=== PATIENT | male | born 1980 | race Caucasian/White ===

== ENCOUNTER 2020-12-08 20:02 | Inpatient (IN) | payer OTHER, SELFPAY ==
[2020-12-08] VITALS (18 sets, daily range): BP systolic 54–139; BP diastolic 31–85; PULSE 87–116; RESP 12–24; TEMP 36.9; O2SAT 88–96; BMI 37.9; BMI 37.2
--- NOTE | 2020-12-08 20:22 | EKG12_ITS ---
Test Reason : SOB Blood Pressure : / mmHG Vent. Rate : 106 BPM Atrial Rate : 106 BPM P-R Int : 142 ms QRS Dur : 120 ms QT Int : 372 ms P-R-T Axes : 029 -16 -06 degrees QTc Int : 494 ms Sinus tachycardia Poor R wave progression Confirmed by ANASTASIIA ROSS, OPAL ([id number]), editor index MANDEEP HERNANDEZ ([id number]) on 12/10/2020 1:24:08 PM Referred By: UG/PL Confirmed By:OPAL LAURENT MD
--- NOTE | 2020-12-08 20:24 | ED.VIS.DYS ---
HPI History of Present Illness Chief Complaint: Shortness of Breath Detail of Chief Complaint: Covid symptoms with increased shortness of breath Informant: patient and spouse/S.O. Onset/Context/Timing Onset: Days (Onset of symptoms November 25) Context: gradual Timing: Continuous and Waxes and wanes Quality: Positive for Dyspnea on exertion; Negative for Orthopnea and PND Current Severity: Moderate Maximum Severity: Severe Worsened by: Exertion and Coughing Relieved by: Nothing Associated Symptoms cough and clear sputum Chest Pain: Positive for None Narrative Narrative: Patient states he had a home positive Covid test. Onset of symptoms November 25. He presents because of increased shortness of breath and difficulty breathing. He has had temperature varying between 100.0-104.0 ?F. He presently denies headache. He states that his rhinorrhea, congestion postnasal drainage sore throat have resolved. His loss of taste and smell has resolved. He does report shortness of breath. Does have a cough productive of clear sputum. He is a non-smoker. He does report nausea without vomiting. Diarrhea resolved. He denies rash. He denies leg pain, swelling or discoloration. There is no history of VTE. He has no history of diabetes, renal disease or peptic ulcer disease. He is unvaccinated. PE Risk Factors: Negative for Cancer, OCP + Smoking + > 35, Prior DVT or PE, Recent immobilization, Recent surgery and Recent travel Prior similar symptoms: Yes Recent Illness/Hospitalization: No [facility] Medical History Gout Home Medications allopurinol 100 mg PO DAILY 12/08/20 [History Last Taken Unknown] Allergy/AdvReac Type Severity Reaction Status Date / Time Penicillins [PCN] Allergy Rash Verified 12/08/20 20:06 Social History (Updated 12/08/20 @ 20:[address] Jimmie Taylor MD) household members: spouse and children Smoking Status: Never smoker alcohol intake: current alcohol intake frequency: other substance use type: does not use ROS ROS ED Constitutional Constitutional ED: Denies chills, fever(s) or sweats Eyes Eyes: Denies blurry vision, change in vision or diplopia ENT ENT ED: Denies ear pain, rhinorrhea or sore throat Cardiovascular Cardiovascular: Denies chest pain, orthopnea, palpitations or paroxysmal nocturnal dyspnea Respiratory/Chest Respiratory/Chest: Reports cough, dyspnea, dyspnea on exertion and sputum; Denies orthopnea or paroxysmal nocturnal dyspnea Gastrointestinal Gastrointestinal: Denies abdominal pain, diarrhea, nausea or vomiting Genitourinary Genitourinary ED: Denies dysuria, hematuria or urinary frequency Musculoskeletal Musculoskeletal: Denies arthralgias, myalgias or neck pain Integumentary Denies Abrasions or rash Neurologic Neurologic: Reports headache(s) and weakness; Denies paresthesias Endocrine Endocrinology: Denies polydipsia, polyphagia or polyuria Hematologic/Lymphatic Hematologic/Lymphatic: Denies easy bleeding or easy bruising EXAM Physical Exam Const Vital Signs: 12/08/20 20:03 12/08/20 20:07 12/08/20 20:19 Temperature 98.5 F 98.5 F 98.5 F Temperature Source Temporal Temporal Temporal Pulse Rate 116 H 116 H 109 H Respiratory Rate 24 H 24 H 20 H Respiratory Effort Respiratory Depth Respiratory Pattern Blood Pressure 133/85 H 133/85 H 131/78 H Blood Pressure Mean 101 101 95 Pulse Ox 88 88 88 Oxygen Delivery Method Room Air Room Air Room Air 12/08/20 20:20 12/08/20 21:00 12/08/20 21:01 Temperature Temperature Source Pulse Rate 92 90 Respiratory Rate Respiratory Effort Short of Breath Respiratory Depth Shallow Respiratory Pattern Tachypnea Blood Pressure 77/47 L 75/46 L Blood Pressure Mean 57 55 Pulse Ox Oxygen Delivery Method 12/08/20 21:03 12/08/20 21:07 12/08/20 21:10 Temperature Temperature Source Pulse Rate 101 H 104 H 87 Respiratory Rate Respiratory Effort Respiratory Depth Respiratory Pattern Blood Pressure 54/31 L 97/76 109/81 H Blood Pressure Mean 38 83 90 Pulse Ox Oxygen Delivery Method Positive well nourished and well developed General Appearance ED: well developed and other Patient is tachypneic and appears ill. He is diaphoretic. He is not pale. ; Negative for NAD or pallor HEENT Reports TM's clear and dry mucous membranes HEENT Narrative: Nares patent. Ears normal. Tympanic Membrane ED: Yes TM's clear Mouth ED: Yes dry mucous membranes Mouth: dry mucous membranes Eyes PERRL and EOMs intact bilaterally General Eye ED: Negative for pale conjunctiva or scleral icterus Neck no lymphadenopathy, supple, no meningeal signs and no JVD Resp No normal respiratory effort and No clear to auscultation bilaterally Auscultation: rales bilateral 1/[address] up and diminished lung sounds Cardio regular rate, S1 normal heart sound, S2 normal heart sound and no murmurs Rate: tachycardic GI non-tender, non-distended and no masses Auscultation: normoactive bowel sounds Palpation: soft Back/Spine no CVA tenderness and normal to inspection Extremity normal to inspection General Extremety ED: Negative for edema or tenderness General Extremity: Negative for edema Neuro oriented x3, CN's II-XII intact bilaterally and no sensory deficits noted Esteban Coma Scale: document GCS findings Spontaneous Obeys Commands Oriented 15 Sensorium / Orientation: alert Motor Exam: strength 5/5 throughout Psych mental status grossly normal Thought Process: normal thought process Skin no wounds General Skin Exam: Negative for jaundice or pallor Lesions: no lesions Rashes: no rashes Trauma: other He is diaphoretic. MDM MDM MDM Narrative Medical decision making narrative: Patient history and physical exam is consistent with Covid pneumonia. Appropriate work-up was initiated. He is hypoxic with a O2 sat of 80% on room air. He received Decadron since he is hypoxic. I was informed by nursing staff at 04/09/2004 that he is hypotensive. He had 2 readings with systolic in the 70s. His third reading was 54. Nurse states she checked manually and time both extremities. Fluid bolus was given. He is only given 8000 cc bolus because there is concern he has Covid pneumonia. Will order a VBG. Will monitor I's and O's. Lab Data Attestation: I reviewed the patient's lab results. Lab results narrative: White count and H&H are unremarkable. Comprehensive metabolic panel is remarkable for sodium of 132 and glucose of 128. Creatinine is 1.31 with an estimated GFR of 64. Transaminases are elevated. The rapid Covid was negative and may be negative since his symptoms started 14 days ago. Based on history physical exam and appearance of chest x-ray suspect he has Covid pneumonia. Since the rapid was negative will treat with antibiotics. The Covid PCR was obtained. He arrived hypoxic. He has had a significant hypotensive episode that was responsive to fluids. Because he is hypoxic and was hypotensive we will have hospitalist see for admission. Labs: Laboratory Results - last 24 hr 10/02/21 10/02/21 10/02/21 20:52 20:52 20:52 WBC 6.0 RBC 5.18 Hgb 15.8 Hct 45.4 MCV 87.6 MCH 30.5 MCHC 34.8 RDW Std Deviation 40.0 RDW Coeff of Antonina 12.5 Plt Count 308 MPV 10.3 Immature Gran % (Auto) 0.300 Neut % (Auto) 71.1 H Lymph % (Auto) 21.2 [place] % (Auto) 7.0 Eos % (Auto) 0.2 Baso % (Auto) 0.2 Absolute Neuts (auto) 4.3 Absolute Lymphs (auto) 1.28 Nucleated RBC % 0 Sodium 132 L Potassium 4.0 Chloride 98 Carbon Dioxide 25.0 Anion Gap 9 BUN 19 H Creatinine 1.31 H Estim Creat Clear Calc 87.15 Est GFR (MDRD) Af Amer 78 Est GFR (MDRD) Non-Af 64 BUN/Creatinine Ratio 14.5 Glucose 128 H Lactic Acid 1.2 Calcium 9.3 Total Bilirubin 0.60 AST 194 H ALT 377 H Alkaline Phosphatase 84 Total Protein 7.6 Albumin 2.9 L Globulin 4.7 H Albumin/Globulin Ratio 0.6 L ABG Data ABG results: ABG 12/08/20 21:42 Specimen Type YAMEL VBG pH 7.45 H VBG pO2 53 H VBG HCO3 23 VBG Total CO2 24 VBG O2 Sat (Calc) 89 H VBG Base Excess -1 POC Mix VBG pCO2 Pt Tmp 33.7 L O2 Delivery Device Cannula Liter Flow 2.0 Radiography Chest X-Ray - ED: 1 View (X-ray was interpreted by me at 2145. X-ray reveals bilateral interstitial infiltrate left greater than right) Diagnostic Testing: Radiology Impression Chest X-Ray 12/08/20 21:34 IMPRESSION: Multifocal pneumonia. Electronically Signed: Oliver Stewart MD at 22:10 EDT Tel , Service support , EKG Initial EKG: Attestation: I personally reviewed and interpreted this EKG as follows: Interpretation: Sinus Tachycardia (Ventricular rate is 106. PA intervals 142 ms. QS duration 120 ms. QT durations 172 ms. [place] is normal. EKG is normal except for the sinus tachycardia) Critical Care Time Critical Care Time: Yes Critical care time (excluding procedures): 30-74 minutes (32), Including time spent: (History, physical, documentation, initiation of therapy), Discussing w/Patient &/or Family/Director Of Student Life ( reports onset was November 27.), Discussing w/Consultants and Arranging Admission or Transfer Discharge Plan Triage Chief Complaint: Shortness of Breath ED Provider: Jimmie Taylor Dx/Rx/DC Orders Clinical Impression: Acute respiratory failure with hypoxia, Bilateral interstitial pneumonia, Acute hypotension, Hyponatremia, Hyperglycemia, Elevated liver transaminase level Prescriptions: No Action allopurinol 100 mg Tablet 100 mg PO DAILY RF: 0 Primary Care Provider: Monica Ferreira Referrals: Monica Ferreira MD [Primary Care Provider] - Disposition Disposition: Acute Care Hospital [facility]
[2020-12-08 21:16] LABS: Absolute Lymphocyte Count 1.28 X10^3/uL (0.83-4.51); Absolute Neutrophil Count 4.3 X10^3/uL (2.0-7.7); Basophil# 0.01 X10^3/uL; Basophil% 0.2 % (0-1); Eosinophil# 0.01 X10^3/uL; Eosinophils% 0.2 % (0-5); Hematocrit 45.4 % (40-54); Hemoglobin 15.8 g/dL (13.0-16.5); Lymphocyte # 1.28 X10^3/ul (0.83-4.51); Lymphocyte % 21.2 % (19-41); Mean Corp Hgb Conc 34.8 g/dL (32-36); Mean Corpuscular Hgb 30.5 pg (27.0-32.0); Mean Corpuscular Volume 87.6 fL (80-94); Mean Platelet Vol. 10.3 fl (6.2-12.0); Monocyte# 0.42 X10^3/uL; NRBC Flagged by Analyzer 0 % (0-5); Neutrophil # 4.29 X10^3/uL (2.7-7.7); Neutrophil % 71.1 % (47-70); Platelet Count 308 K/mm3 (150-450); RBC Distribution Width CV 12.5 % (11.6-14.6); Red Blood Count 5.18 M/mm3 (4.6-6.2)
[2020-12-08] MEDS: 0.9% Normal Saline 1,000 ML 1000 ML IV (21:23)
--- NOTE | 2020-12-08 21:27 | ED.RN ---
2100 - THIS NURSE IN THE ROOM LABELING BLOOD, WHEN CONFIRMING THE PT NAME, PT VERY PALE AND DIAPHORETIC. PT STATES I DON'T FEEL VERY GOOD BP 77/47 ON RIGHT ARM. BP RECYCLED 75/46. BP CUFF SWITCHED TO LEFT ARM BP 54/31. HEAD OF BED LOWERED. THIS NURSE INFORMED DR RICHARD OF THE SAME. IV BOLUS HUNG. SECOND IV STARTED. PT STATES I'M FEELING A LITTLE BETTER. PT CONTINUES TO LAY SUPINE. STILL PALE AND DIAPHORETIC. BP 97/76 AT 2106. BP 109/81 AT 2109
[2020-12-08 21:32] LABS: ALB/GLOB Ratio 0.6 RATIO (0.9-2.4); AST(SGOT) 194 U/L (15-37); Alanine Aminotransfer ALT/SGPT 377 U/L (16-61); Albumin, Serum 2.9 g/dL (3.2-5.0); Alkaline Phosphatase 84 U/L (45-117); Anion Gap 9 (5-15); BUN 19 mg/dL (7-18); BUN/Creat Ratio 14.5 RATIO (10-20); Calcium,Total 9.3 mg/dL (8.5-10.1); Chloride 98 mmol/L (98-107); Creatinine, Serum 1.31 mg/dL (0.70-1.30); EST Glomerular Filtration Rate 64 mL/min (>60); Est Glom Filt Rate - Afr Amer 78 mL/min (>60); Estimated Creatinine Clearance 87.15 ml/min; Globulin 4.7 g/dL (2.2-4.2); Glucose 128 mg/dL (74-106); Protein, Total 7.6 g/dL (6.4-8.2); Sodium Level 132 mmol/L (136-145)
--- NOTE | 2020-12-08 21:34 | RAD_ITS ---
STUDY: X-RAY CHEST REASON FOR EXAM: Male, 40 years old. Cough TECHNIQUE: Portable, supine, AP chest radiograph COMPARISON: None. FINDINGS: Diffuse infiltrative opacities throughout both lungs. There is no demonstrated pleural abnormality. Normal size heart. Normal mediastinum and ailyn. Normal visualized pulmonary arteries. Normal visualized aortic arch and descending thoracic aorta. Normal visualized thoracic spine. Normal visualized ribs, clavicles, and shoulders. There is no demonstrated abnormality of the visualized soft tissue structures of the upper abdomen. RAD/Chest 1 View (Portable) IMPRESSION: Multifocal pneumonia. Electronically Signed: Oliver Stewart MD at 22:10 EDT Tel , Service support ,
[2020-12-08] MEDS: dexAMETHasone 10 MG/ML Vial IV (21:39)
[2020-12-08 21:45] LABS: Lactic Acid 1.2 mmol/L (0.4-1.9)
[2020-12-08 21:46] LABS: Blood Gas Specimen Type VEN; O2 Delivery Device Cannula; VBG BASE EXCESS -1 mmol/L (-1.0-3.5); VBG Bicarbonate 23 mmol/L (22-26); VBG PO2 53 mmHg (25-40); VBG SO2 89 % (50-70); VBG TCO2 24 mmol/L (23-33); VBG pCO2 33.7 mmHg (41-51); VBG pH 7.45 (7.32-7.42)
--- NOTE | 2020-12-08 22:34 | HP.PCM.HOS_ITS ---
HPI - General General Date of Admission: 12/08/20 Date of Service: 12/08/20 Chief Complaint: Covid-like symptoms HPI Narrative PER LAU, is a 40 M with a significant history of gout who presents to the emergency department with Covid-like symptoms. His symptoms started on 27 November 2020. And he did the home Covid test on that returned positive. He had dysgeusia and anosmia which has improved. He has fever; chills; fatigue; weakness; and some shortness of breath that worsens with exertion. He has myalgia; poor appetite; predominantly dry cough that occasionally is productive for clear sputum. Because he was hypoxic with oxygen saturation of around 85% at home he came to emergency department. Patient is unvaccinated for COVID-19 virus. At the emergent department patient was hypotensive and received fluid boluses. [facility] Medical History Gout Home Medications allopurinol 100 mg PO DAILY 12/08/20 [History Last Taken Unknown] Allergy/AdvReac Type Severity Reaction Status Date / Time Penicillins [PCN] Allergy Rash Verified 12/08/20 20:06 Family History Other Diabetes Hypertension Surgical History History of surgery on arm Social History household members: spouse and children Smoking Status: Never smoker alcohol intake: current alcohol intake frequency: other substance use type: does not use ROS ROS Narrative Constitutional: Reports fever, chills, fatigue, and anorexia. Denies change in weight Eyes: Denies blurry vision, change in eye color, change in vision, discharge from eye(s), double vision, erythema, eye pain, loss of vision or other HEENT: Denies abnormal hearing, dysphagia, ear pain, epistaxis, headache(s), hearing loss, nasal congestion, nasal discharge, post nasal drip, sinus pressure, sore throat or other Cardiovascular: Denies chest pain or palpitations. Reports dyspnea on exertion. Respiratory/Chest: Reports predominantly dry cough and occasionally productive cough of clear sputum. Gastrointestinal: Denies abdominal pain, coffee ground emesis, constipation, diarrhea, dyspepsia, hematemesis, hematochezia, loose stools, melena, nausea, vomiting or other Genitourinary: Denies burning urination, difficulty urinating, dysuria, hematuri a, nocturia, urinary frequency, urinary hesitancy, urinary incontinence, urinary urgency or other Musculoskeletal: Reports myalgia. Denies arthralgias, back pain, joint pain, joint stiffness, joint swelling, neck pain or other Neurologic: Denies abnormal gait, abnormal speech, confusion, disequilibrium, dizziness, focal weakness, headache(s), numbness, paresthesias, seizure-like activity, seizures, syncope, tingling, tremor(s) or other Psychiatric: Denies anxiety, depression, homicidal ideation, suicidal ideation or other Endocrinology: Denies change in body appearance, cold intolerance, excessive sweating, heat intolerance, polydipsia, polyuria or other Hematologic/Lymphatic: Denies anemia, easy bleeding, easy bruising, lymphadenopathy or other Integumentary: Denies rashes Allergic/Immunologic: Denies rhinitis, hives, eczema, asthma or other Vital Signs Vital Signs Vital Signs: 12/08/20 20:03 12/08/20 20:07 12/08/20 20:19 Temperature 98.5 F 98.5 F 98.5 F Temperature Source Temporal Temporal Temporal Pulse Rate 116 H 116 H 109 H Respiratory Rate 24 H 24 H 20 H Respiratory Effort Respiratory Depth Respiratory Pattern Blood Pressure 133/85 H 133/85 H 131/78 H Blood Pressure Mean 101 101 95 Pulse Ox 88 88 88 Oxygen Delivery Method Room Air Room Air Room Air 12/08/20 20:20 12/08/20 21:00 12/08/20 21:01 Temperature Temperature Source Pulse Rate 92 90 Respiratory Rate Respiratory Effort Short of Breath Respiratory Depth Shallow Respiratory Pattern Tachypnea Blood Pressure 77/47 L 75/46 L Blood Pressure Mean 57 55 Pulse Ox Oxygen Delivery Method 12/08/20 21:03 12/08/20 21:07 12/08/20 21:10 Temperature Temperature Source Pulse Rate 101 H 104 H 87 Respiratory Rate Respiratory Effort Respiratory Depth Respiratory Pattern Blood Pressure 54/31 L 97/76 109/81 H Blood Pressure Mean 38 83 90 Pulse Ox Oxygen Delivery Method Weight Weight: 134.1 kg Body Mass Index (BMI) 37.9 Physical Exam Narrative Physical exam: General: Well-nourished, well-developed. Head: Normocephalic, atraumatic, no tenderness Eyes: PERRLA, EOMI ENT, no trauma, moist mucous membranes, no rhinorrhea Neck: Nontender, full range of motion, no spinal tenderness, deformities, step- off CVS: Regular rate and rhythm. S1-S2 present. No murmur, gallop or rub. Respiratory : Rales. Chest wall nontender, no wheezing Abdomen: Soft, nontender, nondistended, normal bowel sounds, no masses : Deferred Back: Nontender, no CVA tenderness, no midline spinal tenderness, deformities, step-offs Extremities: Nontender full range of motion, no trauma Skin: Normal color, no trauma, abrasions Neuro: Alert, oriented, cranial nerves II through XII grossly intact. Psychiatry: Normal mood. Normal affect. Not depressed. Not anxious. Results Lab / Micro Data Result Diagrams: 12/08/20 20:52 12/08/20 20:52 Labs: Laboratory Results - last 24 hr 12/08/20 20:52: WBC 6.0, RBC 5.18, Hgb 15.8, Hct 45.4, MCV 87.6, MCH 30.5, MCHC 34.8, RDW Std Deviation 40.0, RDW Coeff of Antonina 12.5, Plt Count 308, MPV 10.3, Immature Gran % (Auto) 0.300, Neut % (Auto) 71.1 H, Lymph % (Auto) 21.2, [place] % (Auto) 7.0, Eos % (Auto) 0.2, Baso % (Auto) 0.2, Absolute Neuts (auto) 4.3, Absolute Lymphs (auto) 1.28, Nucleated RBC % 0 12/08/20 20:52: Sodium 132 L, Potassium 4.0, Chloride 98, Carbon Dioxide 25.0, Anion Gap 9, BUN 19 H, Creatinine 1.31 H, Estim Creat Clear Calc 87.15, Est GFR (MDRD) Af Amer 78, Est GFR (MDRD) Non-Af 64, BUN/Creatinine Ratio 14.5, Glucose 128 H, Calcium 9.3, Total Bilirubin 0.60, AST 194 H, ALT 377 H, Alkaline Phosphatase 84, Total Protein 7.6, Albumin 2.9 L, Globulin 4.7 H, Albumin/Globulin Ratio 0.6 L 12/08/20 20:52: Lactic Acid 1.2 Micro: Microbiology 12/08/20 21:30 Nasal Secretion SARS-CoV-2 Antigen (Rapid) - Final ABG Data ABG results: ABG 12/08/20 21:42 Specimen Type YAMEL VBG pH 7.45 H VBG pO2 53 H VBG HCO3 23 VBG Total CO2 24 VBG O2 Sat (Calc) 89 H VBG Base Excess -1 POC Mix VBG pCO2 Pt Tmp 33.7 L O2 Delivery Device Cannula Liter Flow 2.0 Radiology Impression Chest X-Ray 12/08/20 21:34 IMPRESSION: Multifocal pneumonia. Electronically Signed: Oliver Stewart MD at 22:10 EDT Tel , Service support , Assessment & Plan Assessment/Plan (1) Acute respiratory failure with hypoxia: (2) COVID-19: (3) Hyponatremia: PLAN: Acute hypoxemic respiratory failure secondary to SARS- COV 2 Reports 85% on room air at home. At the emergency department oxygen saturation was 88% on room air and patient required supplemental oxygenation. Supplemental oxygenation continued. Initially hypotensive but responded to fluid bolus at the emergency department. Reports at home a positive Covid test. Rapid antigen at emergent department was negative. PCR test ordered at the emergency department, follow. Actual chest x-ray image was independently interpreted. I agree with radiologist interpretation of multifocal pneumonia. We will check D-dimer. Received ceftriaxone and azithromycin at the emergency department. Hold off further antibiotics at this time. Check procalcitonin. Check Legionella urine antigen. Check Streptococcus pneumoniae antigen. Outside window for remdesivir. Borderline elevated creatinine. Received IV fluid boluses at the emergency department. Trend BMP. Tylenol for fever Tessalon prn ordered Hyponatremia Sodium of 132, mild. Likely secondary to SIADH from pulmonary infection or hypovolemia requiring fluid bolus at the emergency department. Trend BMP. DVT prophylaxis Subcutaneous Lovenox ordered. Charges/Coding Visit Charges Inpatient E&M: 72678 Init Hosp L3
[2020-12-09] VITALS (9 sets, daily range): BP systolic 118–154; BP diastolic 61–90; PULSE 81–104; RESP 16–20; TEMP 36.2–37.4; O2SAT 92–96
[2020-12-09 00:01] LABS: Probe Check PASS; Specimen Processing Control PASS
[2020-12-09 00:05] LABS: D-Dimer Quantitative (DVT/PE) 1.34 FEU/ug/m (0.27-0.49)
[2020-12-09 00:44] LABS: Procalcitonin 0.26 ng/mL (0.00-0.09)
[2020-12-09] MEDS: guaiFENesin 1,200 MG Tablet 1200 MG PO ×3 (01:04→21:04)
[2020-12-09] MEDS: Acetaminophen 325 MG Tablet 650 MG PO (01:04)
--- NOTE | 2020-12-09 01:20 | CT_ITS ---
STUDY: CTA CHEST REASON FOR EXAM: Male, 40 years old. Elevated D-dimer, cough RADIATION DOSAGE (If Supplied By Facility): CTDIvol = ( 12.66 ) mGy, DLP = ( 519.67 ) mGycm TECHNIQUE: The examination was performed with the intravenous administration of IV 100mL Isovue-370. Post-processing of the angiographic images was performed, with multiplanar reformation and 3D reconstruction. Individualized dose optimization techniques were used for this CT. COMPARISON: None. FINDINGS: Normal enhancement of the main pulmonary artery and right and left pulmonary arteries. Normal enhancement of the bilateral peripheral pulmonary arteries. Respiratory motion artifact complicates evaluation of the segmental and subsegmental pulmonary arteries. No central pulmonary artery filling defect. Normal thoracic aorta and visualized great vessels. There is no demonstrated aortic dissection. Normal heart and pericardium. Normal mediastinum. Normal hilar regions. Normal visualized trachea and bronchi. The lungs are well expanded. Diffuse patchy groundglass densities in both lungs. Normal pleura. Normal chest wall structures. Normal osseous structures. No acute abnormal finding the visualized upper abdomen. CT/CTA Chest W/WO Contrast IMPRESSION: Bilateral multifocal pneumonia. Normal CTA chest examination, without a demonstrated pulmonary embolism or arterial dissection. Electronically Signed: Oliver Stewart MD at 2:23 EDT Tel , Service support ,
--- NOTE | 2020-12-09 04:51 | PCS.PANDOC ---
PANDEMIC DOCUMENTATION INITIATED: Date: 10/22/2020 Time: 190
[2020-12-09 06:01] LABS: Absolute Lymphocyte Count 0.72 X10^3/uL (0.83-4.51); Absolute Neutrophil Count 3.2 X10^3/uL (2.0-7.7); Basophil# 0.01 X10^3/uL; Basophil% 0.2 % (0-1); Hematocrit 46.2 % (40-54); Hemoglobin 15.7 g/dL (13.0-16.5); Lymphocyte # 0.72 X10^3/ul (0.83-4.51); Lymphocyte % 17.4 % (19-41); Mean Corpuscular Hgb 30.5 pg (27.0-32.0); Mean Corpuscular Volume 89.9 fL (80-94); Mean Platelet Vol. 10.8 fl (6.2-12.0); Monocyte# 0.13 X10^3/uL; Monocyte% 3.1 % (0-10); NRBC Flagged by Analyzer 0 % (0-5); Neutrophil # 3.24 X10^3/uL (2.7-7.7); Neutrophil % 78.6 % (47-70); Platelet Count 265 K/mm3 (150-450); RBC Distribution Width CV 12.6 % (11.6-14.6); RBC Distribution Width SD 41.8 fl (35.1-43.9); Red Blood Count 5.14 M/mm3 (4.6-6.2); White Blood Count 4.1 K/mm3 (4.4-11.0)
[2020-12-09 06:24] LABS: Anion Gap 6 (5-15); BUN 18 mg/dL (7-18); BUN/Creat Ratio 14.6 RATIO (10-20); Calcium,Total 9.3 mg/dL (8.5-10.1); Chloride 99 mmol/L (98-107); Creatinine, Serum 1.23 mg/dL (0.70-1.30); EST Glomerular Filtration Rate 69 mL/min (>60); Est Glom Filt Rate - Afr Amer 84 mL/min (>60); Estimated Creatinine Clearance 92.82 ml/min; Glucose 202 mg/dL (74-106); Potassium 5.5 mmol/L (3.5-5.1); Sodium Level 132 mmol/L (136-145)
--- NOTE | 2020-12-09 08:04 | PN.HOSP_ITS ---
Subjective Subjective Patient symptoms started on 27 November and home Covid test positive on 29 November. Has dyschezia, anosmia which improved. Other flulike symptoms includes fever, chills fatigue weakness shortness of breath on exertion. Dry cough. Patient is unvaccinated. Patient was hypotensive in ED and received fluid bolus. The most recent blood pressure is 154/90. Objective Data Objective Data Vital Signs: Vital Signs Temp Pulse Resp BP Pulse Ox 97.9 F 92 18 154/90 H 93 12/09/20 05:49 12/09/20 06:55 12/09/20 05:49 12/09/20 05:49 12/09/20 05:49 Oxygen Flow Rate (L/min) 2 Oxygen Delivery Method Nasal Cannula Weight: 290 lb 2.053 oz Body Mass Index (BMI) 37.2 Intake & Output: Intake and Output for Last 24 Hours 12/07/20 12/08/20 12/09/20 23:59 23:59 23:59 Intake Total 1050 / 1050 495 / 495 Output Total 450 / 450 Balance 1050 / 1050 45 / 45 Lab / Micro Data Result Diagrams: 12/09/20 05:04 12/09/20 05:04 Labs: Laboratory Results - last 24 hr 12/08/20 20:52: WBC 6.0, RBC 5.18, Hgb 15.8, Hct 45.4, MCV 87.6, MCH 30.5, MCHC 34.8, RDW Std Deviation 40.0, RDW Coeff of Antonina 12.5, Plt Count 308, MPV 10.3, Immature Gran % (Auto) 0.300, Neut % (Auto) 71.1 H, Lymph % (Auto) 21.2, [place] % (Auto) 7.0, Eos % (Auto) 0.2, Baso % (Auto) 0.2, Absolute Neuts (auto) 4.3, Absolute Lymphs (auto) 1.28, Nucleated RBC % 0 12/08/20 20:52: Sodium 132 L, Potassium 4.0, Chloride 98, Carbon Dioxide 25.0, Anion Gap 9, BUN 19 H, Creatinine 1.31 H, Estim Creat Clear Calc 87.15, Est GFR (MDRD) Af Amer 78, Est GFR (MDRD) Non-Af 64, BUN/Creatinine Ratio 14.5, Glucose 128 H, Calcium 9.3, Total Bilirubin 0.60, AST 194 H, ALT 377 H, Alkaline Phosphatase 84, Total Protein 7.6, Albumin 2.9 L, Globulin 4.7 H, Albumin/Globulin Ratio 0.6 L 12/08/20 20:52: Lactic Acid 1.2 12/08/20 20:52: Procalcitonin 0.26 H 12/08/20 22:37: COVID-19 (FRANSISCO) Positive 12/08/20 23:35: D-Dimer Quant (PE/DVT) 1.34 H* 12/09/20 05:04: WBC 4.1 L, RBC 5.14, Hgb 15.7, Hct 46.2, MCV 89.9, MCH 30.5, MCHC 34.0, RDW Std Deviation 41.8, RDW Coeff of Antonina 12.6, Plt Count 265, MPV 10.8, Immature Gran % (Auto) 0.700, Neut % (Auto) 78.6 H, Lymph % (Auto) 17.4 L, [place] % (Auto) 3.1, Eos % (Auto) 0.0, Baso % (Auto) 0.2, Absolute Neuts (auto) 3.2, Absolute Lymphs (auto) 0.72 L, Nucleated RBC % 0 12/09/20 05:04: Sodium 132 L, Potassium 5.5 H, Chloride 99, Carbon Dioxide 27.0, Anion Gap 6, BUN 18, Creatinine 1.23, Estim Creat Clear Calc 92.82, Est GFR (MDRD) Af Amer 84, Est GFR (MDRD) Non-Af 69, BUN/Creatinine Ratio 14.6, Glucose 202 H, Calcium 9.3 Micro: Microbiology 12/08/20 22:37 Mucosa - Nose Respiratory Panel (PCR) - Final 12/09/20 01:36 Urine, Random Legionella Antigen - Final 12/09/20 01:36 Urine, Random Streptococcus pneumoniae Antigen (M - Final 12/08/20 21:30 Nasal Secretion SARS-CoV-2 Antigen (Rapid) - Final ABG Data ABG results: ABG 12/08/20 21:42 Specimen Type YAMEL VBG pH 7.45 H VBG pO2 53 H VBG HCO3 23 VBG Total CO2 24 VBG O2 Sat (Calc) 89 H VBG Base Excess -1 POC Mix VBG pCO2 Pt Tmp 33.7 L O2 Delivery Device Cannula Liter Flow 2.0 Radiography Diagnostic Testing: Radiology Impression Chest X-Ray 12/08/20 21:34 IMPRESSION: Multifocal pneumonia. Electronically Signed: Oliver Stewart MD at 22:10 EDT Tel , Service support , Chest CTA 12/09/20 01:20 IMPRESSION: Bilateral multifocal pneumonia. Normal CTA chest examination, without a demonstrated pulmonary embolism or arterial dissection. Electronically Signed: Oliver Stewart MD at 2:23 EDT Tel , Service support , Physical Exam Narrative General: Alert, Oriented x3, Cooperative, laying on prone position. HEENT: Atraumatic, PERRLA, EOMI, Normocephalic Oral: No Gingival or Mucosal Lesions/ Ulcerations Neck: Supple, No JVD, Negative Carotid Bruits Lungs: Air entry diminished in bilateral lung bases. No crepitation/rhonchi Cardiovascular: Regular rate, Regular Rhythm, Normal S1, Normal S2, No murmurs Abdomen: Bowel Sounds Present, Soft, Non Tender, Non-Distended : No renal angle tenderness. No suprapubic tenderness. Extremities: No edema, Capillary Refill Less than 3 Seconds Skin: No rashes, No breakdown Musculoskeletal: No Tenderness to Palpation of Joints or Extremities Neurological: Cranial nerves II-XII grossly intact, DTR 2+/4 and Symmetrical, Neuro grossly intact Psych/Mental Status: Normal Affect, Appropriate. Assessment & Plan Assessment/Plan (1) Acute respiratory failure with hypoxia: (2) COVID-19: (3) Hyponatremia: PLAN: 1. Acute hypoxemic respiratory failure secondary to SARS- COV 2: Patient is admitted in PCU. On oxygen to maintain pulse ox more than 92%. Hypotension responded to IV fluid and currently blood pressure is slightly on higher side. Bronchopulmonary hygiene encouraged with prone positioning.Urinary antigens and is negative. Respiratory panel negative. Patient outside window for remdesivir. D-dimer elevated. Procalcitonin 0.26. Lactic acid normal. Does not need further antibiotic patient had 1 dose of cefazolin azithromycin in ED. 2. Hypotonic hypovolemic hyponatremia: Sodium 132, potassium 5.5. Not much difference. Possible SIADH from pulmonary infection. Mild hyperkalemia. Kayexalate given. DVT prophylaxis Subcutaneous Lovenox ordered. Microbiology Past 72 Hours 12/08/20 22:37 Mucosa - Nose Respiratory Panel (PCR) - Final 12/09/20 01:36 Urine, Random Legionella Antigen - Final 12/09/20 01:36 Urine, Random Streptococcus pneumoniae Antigen (M - Final 12/08/20 21:30 Nasal Secretion SARS-CoV-2 Antigen (Rapid) - Final Laboratory Results 12/08/20 20:52: WBC 6.0, RBC 5.18, Hgb 15.8, Hct 45.4, MCV 87.6, MCH 30.5, MCHC 34.8, RDW Std Deviation 40.0, RDW Coeff of Antonina 12.5, Plt Count 308, MPV 10.3, Immature Gran % (Auto) 0.300, Neut % (Auto) 71.1 H, Lymph % (Auto) 21.2, [place] % (Auto) 7.0, Eos % (Auto) 0.2, Baso % (Auto) 0.2, Absolute Neuts (auto) 4.3, Abso lute Lymphs (auto) 1.28, Nucleated RBC % 0 12/08/20 20:52: Sodium 132 L, Potassium 4.0, Chloride 98, Carbon Dioxide 25.0, Anion Gap 9, BUN 19 H, Creatinine 1.31 H, Estim Creat Clear Calc 87.15, Est GFR (MDRD) Af Amer 78, Est GFR (MDRD) Non-Af 64, BUN/Creatinine Ratio 14.5, Glucose 128 H, Calcium 9.3, Total Bilirubin 0.60, AST 194 H, ALT 377 H, Alkaline Phosphatase 84, Total Protein 7.6, Albumin 2.9 L, Globulin 4.7 H, Albumin/Globulin Ratio 0.6 L 12/08/20 20:52: Lactic Acid 1.2 12/08/20 20:52: Procalcitonin 0.26 H 12/08/20 21:42: Specimen Type YAMEL, VBG pH 7.45 H, VBG pO2 53 H, VBG HCO3 23, VBG Total CO2 24, VBG O2 Sat (Calc) 89 H, VBG Base Excess -1, POC Mix VBG pCO2 Pt Tmp 33.7 L, O2 Delivery Device Cannula, Liter Flow 2.0 12/08/20 22:37: COVID-19 (FRANSISCO) Positive 12/08/20 23:35: D-Dimer Quant (PE/DVT) 1.34 H* 12/09/20 05:04: WBC 4.1 L, RBC 5.14, Hgb 15.7, Hct 46.2, MCV 89.9, MCH 30.5, MCHC 34.0, RDW Std Deviation 41.8, RDW Coeff of Antonina 12.6, Plt Count 265, MPV 10.8, Immature Gran % (Auto) 0.700, Neut % (Auto) 78.6 H, Lymph % (Auto) 17.4 L, [place] % (Auto) 3.1, Eos % (Auto) 0.0, Baso % (Auto) 0.2, Absolute Neuts (auto) 3.2, Absolute Lymphs (auto) 0.72 L, Nucleated RBC % 0 12/09/20 05:04: Sodium 132 L, Potassium 5.5 H, Chloride 99, Carbon Dioxide 27.0, Anion Gap 6, BUN 18, Creatinine 1.23, Estim Creat Clear Calc 92.82, Est GFR (MDRD) Af Amer 84, Est GFR (MDRD) Non-Af 69, BUN/Creatinine Ratio 14.6, Glucose 202 H, Calcium 9.3 Charges/Coding Visit Charges Inpatient E&M: 03648 Subs Hosp L2
[2020-12-09] MEDS: dexAMETHasone 2 MG TABLET 6 MG PO (10:13)
[2020-12-09] MEDS: Enoxaparin 30 MG/0.3 ML Syringe SC ×2 (10:15→21:04)
[2020-12-09] MEDS: 0.9% Normal Saline 1,000 ML 100 ML IV (14:12)
[2020-12-09] MEDS: Sodium Polystyrene Sulfonate 15 GM/60 ML UDC 30 GM PO (14:12)
[2020-12-10] VITALS (13 sets, daily range): BP systolic 123–133; BP diastolic 65–82; PULSE 79–101; RESP 18–30; TEMP 35.8–36.1; O2SAT 87–95
[2020-12-10] MEDS: INHALER, ASSIST DEVICES 1 EACH SPACER INHALATION (00:22)
[2020-12-10] MEDS: dexAMETHasone 2 MG TABLET 6 MG PO (08:57)
[2020-12-10] MEDS: guaiFENesin 1,200 MG Tablet 1200 MG PO ×2 (08:57→21:18)
[2020-12-10] MEDS: Enoxaparin 30 MG/0.3 ML Syringe SC ×2 (08:58→21:18)
--- NOTE | 2020-12-10 09:55 | PCM.PN.HOSP ---
Subjective Subjective Patient is a 40-year-old gentleman unvaccinated against COVID-19 who presented with shortness of breath. Had apparently tested positive for Covid on 11/29/2020. Objective Data Objective Data Vital Signs: Vital Signs Temp Pulse Resp BP Pulse Ox 97.0 F L 80 18 133/82 H 92 12/10/20 09:03 12/10/20 09:03 12/10/20 09:03 12/10/20 09:03 12/10/20 09:03 Oxygen Flow Rate (L/min) 5 Oxygen Delivery Method Nasal Cannula Weight: 132.2 kg Body Mass Index (BMI) 37.2 Intake & Output: Intake and Output for Last 24 Hours 12/08/20 12/09/20 12/10/20 23:59 23:59 23:59 Intake Total 1050 / 1050 1695 / 1935 1240 / 1240 Output Total 450 / 450 Balance 1050 / 1050 1245 / 1485 1240 / 1240 Lab / Micro Data Result Diagrams: 12/09/20 05:04 12/09/20 05:04 Micro: Microbiology 12/08/20 22:37 Mucosa - Nose Respiratory Panel (PCR) - Final 12/09/20 01:36 Urine, Random Legionella Antigen - Final 12/09/20 01:36 Urine, Random Streptococcus pneumoniae Antigen (M - Final 12/08/20 21:30 Nasal Secretion SARS-CoV-2 Antigen (Rapid) - Final Physical Exam Narrative GENERAL: cooperative but remains dyspneic at rest HEENT: Atraumatic; EYES; Anicteric, Normal Conjunctiva NECK; supple, normal thyroid, RESPIRATORY: Diminished to auscultation CARDIOVASCULAR: Regular S1 S2, GI: soft, normoactive bowel sounds, : No Renal angle tenderness; EXTREMITIES: No edema, no clubbing, MUSCULOSKELETAL: no muscle waisting NEURO: Awake; no lateralizing signs. SKIN: No Rash PSYCH; Flat affect Assessment & Plan Assessment/Plan (1) Acute respiratory failure with hypoxia: (2) COVID-19: (3) Hyponatremia: PLAN: Patient is a 40-year-old gentleman unvaccinated against COVID-19 who presented with shortness of breath. Had apparently tested positive for Covid on 11/29/2020. 1. Acute hypoxic respiratory failure ?Secondary to SARS-CoV-2 pneumonia. Patient was outside the window for remdesivir was however started on Decadron and supplemental oxygen and admitted to a monitored bed where he is currently being managed 2. Mild hyponatremia ?Secondary to suspected SIADH from his underlying pulmonary infection. Monitoring with daily BMPs 3. Hypokalemia ?Potassium was 5.5 the day prior repeat labs ordered and if still remains elevated treatment with additional Kayexalate to be given 4. Obesity with BMI of 37.4 ?Weight loss advised 5. DVT prophylaxis ?Lovenox Charges/Coding Multi Select Codes Visit Charges Visit Charges: 81082 Subs Hosp L3
[2020-12-10 13:32] LABS: Hematocrit 41.8 % (40-54); Hemoglobin 14.4 g/dL (13.0-16.5); Mean Corp Hgb Conc 34.4 g/dL (32-36); Mean Corpuscular Hgb 30.4 pg (27.0-32.0); Mean Corpuscular Volume 88.2 fL (80-94); Mean Platelet Vol. 10.1 fl (6.2-12.0); Platelet Count 428 K/mm3 (150-450); RBC Distribution Width CV 12.4 % (11.6-14.6); RBC Distribution Width SD 40.4 fl (35.1-43.9); Red Blood Count 4.74 M/mm3 (4.6-6.2); White Blood Count 12.2 K/mm3 (4.4-11.0)
[2020-12-10 14:07] LABS: Anion Gap 8 (5-15); BUN 24 mg/dL (7-18); BUN/Creat Ratio 23.3 RATIO (10-20); Calcium,Total 9.1 mg/dL (8.5-10.1); Chloride 100 mmol/L (98-107); Creatinine, Serum 1.03 mg/dL (0.70-1.30); EST Glomerular Filtration Rate 85 mL/min (>60); Est Glom Filt Rate - Afr Amer 103 mL/min (>60); Estimated Creatinine Clearance 110.84 ml/min; Glucose 241 mg/dL (74-106); Potassium 4.5 mmol/L (3.5-5.1); Sodium Level 133 mmol/L (136-145)
--- NOTE | 2020-12-10 14:13 | CASEMGMT ---
MELISSA RAMIREZ assessment: Face to Face with patient for initial transition planning/care coordination assessment. MELISSA RAMIREZ introduced self and role at [facility], pt voices understanding and consents to assessment. Pt is currently on 5L nc and able to speak in full sentences, no distress. Pt is A/Ox4 and answers all questions appropriately. Pt states was sick previously but is back to normal now and states no concerns with getting resources at home. Care providers, pharmacy, and demographics verified. Presentation: Pt states tested positive for COVID on 11/29, c/o SOB, low pulse ox Admitting dx: COVID PCP: Jhon Specialists: Pt states no current specialists. Preferred Pharmacy: [facility] [place] Insurance: [employer] Prescription Benefit: C[employer]a Living Will/HPOA: Pt states does not have LW/HPOA and declines AD info. LNOK: Cristo Saldana, Living Arrangements: Pt lives with in 2 story home and states no concerns at home. Pt is independent with ADL's. Transportation: Pt states drives self or family/friends drive and states no transportation concerns. DME/HHC: Pt states no current DME or no need for any further DME. Pt states no preference for DME provider, if qualifies for home oxygen at discharge. Pt states no hx of HHC or SNF. Pt states no concerns with going home at time of discharge. Pt works daytime caregiver. Pt states does not smoke cigarettes or drink ETOH. Pt states no further concerns/needs. CM to follow for home oxygen need and any further discharge planning/needs. Advised pt to ask for CM if any further questions/concerns/needs arise, voices understanding. Pt Goal: Home Plan[place] MELISSA RAMIREZ
[2020-12-11] VITALS (7 sets, daily range): BP systolic 131–133; BP diastolic 71–88; PULSE 60–87; RESP 16–18; TEMP 36.1–36.5; O2SAT 89–94
[2020-12-11 07:27] LABS: Absolute Lymphocyte Count 1.16 X10^3/uL (0.83-4.51); Absolute Neutrophil Count 8.2 X10^3/uL (2.0-7.7); Basophil# 0.01 X10^3/uL; Basophil% 0.1 % (0-1); Hematocrit 41.8 % (40-54); Hemoglobin 14.1 g/dL (13.0-16.5); Lymphocyte # 1.16 X10^3/ul (0.83-4.51); Lymphocyte % 11.3 % (19-41); Mean Corp Hgb Conc 33.7 g/dL (32-36); Mean Corpuscular Hgb 30.2 pg (27.0-32.0); Mean Corpuscular Volume 89.5 fL (80-94); Mean Platelet Vol. 10.1 fl (6.2-12.0); Monocyte# 0.75 X10^3/uL; Monocyte% 7.3 % (0-10); NRBC Flagged by Analyzer 0 % (0-5); Neutrophil # 8.24 X10^3/uL (2.7-7.7); Neutrophil % 80.3 % (47-70); Platelet Count 465 K/mm3 (150-450); RBC Distribution Width CV 12.5 % (11.6-14.6); RBC Distribution Width SD 41.3 fl (35.1-43.9); Red Blood Count 4.67 M/mm3 (4.6-6.2); White Blood Count 10.3 K/mm3 (4.4-11.0)
--- NOTE | 2020-12-11 07:30 | DS.PCM_ITS ---
Providers Date of Admission: 12/08/20 Primary Care Physician: Dr. Monica Ferreira MD Reason For Visit: SARS COV-2 Diagnosis Discharge Diagnosis (1) Acute respiratory failure with hypoxia: Status: Acute Code(s): J96.01 - Acute respiratory failure with hypoxia (2) COVID-19: Status: Acute Code(s): U07.1 - COVID-19 (3) Hyponatremia: Status: Acute Code(s): E87.1 - Hypo-osmolality and hyponatremia Medications at Discharge Home Medications allopurinol 100 mg PO DAILY 12/08/20 dexamethasone 6 mg PO DAILY 7 Days #21 tab 12/11/20 Hospital Course Summary of Care Provided Minutes Spent on Discharge: 35 Hospital Course: Patient is a 40-year-old gentleman unvaccinated against COVID- 19 who presented with shortness of breath. Had apparently tested positive for Covid on 11/29/2020. 1. Acute hypoxic respiratory failure ?Secondary to SARS-CoV-2 pneumonia. Patient was outside the window for remdesivir was however started on Decadron and supplemental oxygen and admitted to a monitored bed where he is currently being managed 2. Mild hyponatremia ?Secondary to suspected SIADH from his underlying pulmonary infection. Monitoring with daily BMPs 3. Hyperkalemia ?Potassium was 5.5 the day prior repeat labs ordered and if still remains elevated treatment with additional Kayexalate to be given -Resolved at the time of discharge 4. Obesity with BMI of 37.4 ?Weight loss advised 5. DVT prophylaxis ?Lovenox Physical Exam Narrative GENERAL: cooperative HEENT: Atraumatic; EYES; Anicteric, Normal Conjunctiva NECK; supple, normal thyroid, RESPIRATORY: Diminished to auscultation CARDIOVASCULAR: Regular S1 S2, GI: soft, normoactive bowel sounds, : No Renal angle tenderness; EXTREMITIES: No edema, no clubbing, MUSCULOSKELETAL: no muscle waisting NEURO: Awake; no lateralizing signs. SKIN: No Rash Weight / BMI Weight Weight: 132.4 kg Body Mass Index (BMI) 37.2 ABG / Lab / Microbiology Data Result Diagrams: 12/11/20 07:06 12/11/20 07:06 Laboratory: Laboratory Results - last 24 hr 12/10/20 13:20: WBC 12.2 H, RBC 4.74, Hgb 14.4, Hct 41.8, MCV 88.2, MCH 30.4, MCHC 34.4, RDW Std Deviation 40.4, RDW Coeff of Antonina 12.4, Plt Count 428, MPV 10.1 12/10/20 13:20: Sodium 133 L, Potassium 4.5, Chloride 100, Carbon Dioxide 25.0, Anion Gap 8, BUN 24 H, Creatinine 1.03, Estim Creat Clear Calc 110.84, Est GFR (MDRD) Af Amer 103, Est GFR (MDRD) Non-Af 85, BUN/Creatinine Ratio 23.3 H, Glucose 241 H, Calcium 9.1 12/11/20 07:06: WBC 10.3, RBC 4.67, Hgb 14.1, Hct 41.8, MCV 89.5, MCH 30.2, MCHC 33.7, RDW Std Deviation 41.3, RDW Coeff of Antonina 12.5, Plt Count 465 H, MPV 10.1, Immature Gran % (Auto) 1.000 H, Neut % (Auto) 80.3 H, Lymph % (Auto) 11.3 L, [place] % (Auto) 7.3, Eos % (Auto) 0.0, Baso % (Auto) 0.1, Absolute Neuts (auto) 8.2 H, Absolute Lymphs (auto) 1.16, Nucleated RBC % 0 Microbiology: Microbiology 12/08/20 22:37 Mucosa - Nose Respiratory Panel (PCR) - Final 12/09/20 01:36 Urine, Random Legionella Antigen - Final 12/09/20 01:36 Urine, Random Streptococcus pneumoniae Antigen (M - Final 12/08/20 21:30 Nasal Secretion SARS-CoV-2 Antigen (Rapid) - Final D/C Instructions Discharge Diet: No restrictions Discharge Activity: Return to Normal Activity Call your doctor if you observe: Fever of 101 or Higher, Shortness of breath, Fainting spells and Chest pain Meaningful Use Info Meaningful Use Diagnoses (Choose all that apply): None applicable Discharge Plan Admission Admit Date/Time: 12/08/20 22:27 Attending Provider: Errol Angel Primary Care Provider: Monica Ferreira Discharge Orders/Prescriptions Prescriptions: New dexamethasone 2 mg Tablet 6 mg PO DAILY 7 Days Qty: 21 RF: 0 Continued allopurinol 100 mg Tablet 100 mg PO DAILY RF: 0 Referrals / Follow Up: Monica Ferreira MD [Primary Care Provider] - Disposition Disposition (needs filled in before D/C Order can be placed): Home, Self Care Charges/Coding Visit Charges Inpatient E&M: 17619 Disch Hosp
[2020-12-11 08:22] LABS: ALB/GLOB Ratio 0.7 RATIO (0.9-2.4); AST(SGOT) 106 U/L (15-37); Alanine Aminotransfer ALT/SGPT 334 U/L (16-61); Albumin, Serum 2.8 g/dL (3.2-5.0); Alkaline Phosphatase 78 U/L (45-117); Anion Gap 6 (5-15); BUN 23 mg/dL (7-18); BUN/Creat Ratio 24.9 RATIO (10-20); Chloride 100 mmol/L (98-107); Creatinine, Serum 0.92 mg/dL (0.70-1.30); EST Glomerular Filtration Rate 96 mL/min (>60); Est Glom Filt Rate - Afr Amer 116 mL/min (>60); Estimated Creatinine Clearance 124.09 ml/min; Globulin 4.2 g/dL (2.2-4.2); Glucose 127 mg/dL (74-106); Potassium 4.6 mmol/L (3.5-5.1); Sodium Level 135 mmol/L (136-145)
[2020-12-11] MEDS: dexAMETHasone 2 MG TABLET 6 MG PO (08:39)
[2020-12-11] MEDS: guaiFENesin 1,200 MG Tablet 1200 MG PO (08:39)
[2020-12-11] MEDS: Enoxaparin 30 MG/0.3 ML Syringe SC (08:39)
--- NOTE | 2020-12-11 09:54 | CASEMGMT ---
Per Edward TORRES, pt does not qualify for home oxygen at this time. Pt independent in room and states no further concerns/need with going home at discharge. Andreas TORRES CM
--- NOTE | 2020-12-11 12:25 | PHA.DC.MC ---
Pharmacy Service has performed discharge medication reconciliation and counseling for this patient. Patient counseled via telephone due to COVID precautions. 1. DEXAMETHASONE 6MG PO DAILY X 7 DAYS The patient's discharge medication list was reviewed for discrepancies and discrepancies were resolved. Home Medications allopurinol 100 mg PO DAILY 12/08/20 dexamethasone 6 mg PO DAILY 7 Days #21 tab 12/11/20 The patient was counseled on the following discharge medications and changes in medications for homegoing were reviewed. The Reason for Use, instructions for use, and potential side effects were reviewed for all new medications. The patient's questions regarding all of their medications were answered. The patient was able to verbally demonstrate an understanding of their discharge medications.
--- NOTE | 2020-12-12 16:26 | CASEMGMT ---
RNASHLEY DC F/u Call DC Date: 12.11.20 DC Diagnosis: Acute respiratory failure with hypoxia, Covid DC Disposition: Home (Did not qualify for oxygen) Lace/Strata: 08/07 Called patient listed cell phone on demographics, no answer. VM stated Geoff- therefore no VM was left as this keno writer / runner could not verify correct patient identity. MELISSA AsifCM
== END 2020-12-11 13:34 | disposition home or self-care (01) | DRG 177 ==
LOC: ED 22:25 → PCU 22:42
PROVIDERS: Admitting Provider Hospitalist; Emergency Provider Emergency Medicine; PCP Family Medicine; Visit Provider Internal Medicine
DX: U07.1 COVID-19 (principal); J96.01 Acute respiratory failure with hypoxia; J12.82 Pneumonia due to coronavirus disease 2019; E22.2 Syndrome of inappropriate secretion of antidiuretic hormone; M10.9 Gout, unspecified; E87.5 Hyperkalemia; I95.9 Hypotension, unspecified; Z79.899 Other long term (current) drug therapy; Z28.3 Underimmunization status; E66.9 Obesity, unspecified; Z68.37 Body mass index [BMI] 37.0-37.9, adult
CPT/HCPCS: 36415; 71045; 71275; 80048; 80053; 82803; 83605; 84145; 85025; 85027; 85379; 87040; 87426; 87449; 87633; 87635; 93005; 99251; 99285; J7030; Q9967; U0005; A4216; G0463; J0696; U0003

== ENCOUNTER → 2020-12-22 09:01 | Outpatient (CLI) | payer OTHER, SELFPAY ==
[2020-12-22 11:37] LABS: Anion Gap 6 (5-15); BUN 24 mg/dL (7-18); BUN/Creat Ratio 23.1 RATIO (10-20); Calcium,Total 8.9 mg/dL (8.5-10.1); Chloride 110 mmol/L (98-107); Cholesterol 212 mg/dL (200); Creatinine, Serum 1.04 mg/dL (0.70-1.30); EST Glomerular Filtration Rate 84 mL/min (>60); Est Glom Filt Rate - Afr Amer 102 mL/min (>60); Glucose 87 mg/dL (74-106); High Density Lipoprotein 43 mg/dL; Potassium 4.1 mmol/L (3.5-5.1); Sodium Level 143 mmol/L (136-145); Triglycerides 135 mg/dL; Uric Acid 7.3 mg/dL (3.5-7.2); Very Low Density Lipoprotein 27 mg/dL (5-40)
== END ==
PROVIDERS: PCP Family Medicine; Referring Provider Family Medicine; Visit Provider Family Medicine
DX: Z00.00 Encounter for general adult medical examination without abnormal findings (principal); M10.9 Gout, unspecified
CPT/HCPCS: 36415; 80048; 80061; 84550

== ENCOUNTER → 2022-01-11 | Outpatient (CLI) | payer BC, SELFPAY ==
[2022-01-11 08:25] LABS: Anion Gap 5 (5-15); BUN 20 mg/dL (7-18); BUN/Creat Ratio 16.5 RATIO (10-20); Calcium,Total 9.8 mg/dL (8.5-10.1); Chloride 107 mmol/L (98-107); Cholesterol 218 mg/dL (200); Creatinine, Serum 1.21 mg/dL (0.70-1.30); EST Glomerular Filtration Rate 70 mL/min (>60); Est Glom Filt Rate - Afr Amer 85 mL/min (>60); Glucose 119 mg/dL (74-106); High Density Lipoprotein 41 mg/dL; Potassium 4.4 mmol/L (3.5-5.1); Sodium Level 140 mmol/L (136-145); Triglycerides 149 mg/dL
[2022-01-11 08:26] LABS: Very Low Density Lipoprotein 30 mg/dL (5-40)
== END | disposition home or self-care (01) ==
LOC: LAB 07:12
PROVIDERS: PCP Family Medicine; Referring Provider Family Medicine; Visit Provider Family Medicine
DX: Z00.00 Encounter for general adult medical examination without abnormal findings (principal)
CPT/HCPCS: 36415; 80048; 80061

== ENCOUNTER → 2024-01-01 | Outpatient (CLI) | payer BC, SELFPAY ==
[2024-01-01 17:31] LABS: Absolute Lymphocyte Count 3.35 X10^3/uL (0.83-4.51); Absolute Neutrophil Count 5.1 X10^3/uL (2.0-7.7); Basophil# 0.07 X10^3/uL; Basophil% 0.7 % (0-1); Eosinophil# 0.17 X10^3/uL; Eosinophils% 1.8 % (0-5); Hematocrit 44.3 % (40-54); Hemoglobin 15.3 g/dL (13.0-16.5); Lymphocyte # 3.35 X10^3/ul (0.83-4.51); Lymphocyte % 34.9 % (19-41); Mean Corp Hgb Conc 34.5 g/dL (32-36); Mean Corpuscular Hgb 30.9 pg (27.0-32.0); Mean Corpuscular Volume 89.5 fL (80-94); Mean Platelet Vol. 11.4 fl (6.2-12.0); Monocyte% 9.4 % (0-10); NRBC Flagged by Analyzer 0 % (0-5); Platelet Count 295 K/mm3 (150-450); RBC Distribution Width CV 12.9 % (11.6-14.6); RBC Distribution Width SD 42.1 fl (35.1-43.9); Red Blood Count 4.95 M/mm3 (4.6-6.2); White Blood Count 9.6 K/mm3 (4.4-11.0)
[2024-01-01 17:58] LABS: Anion Gap 6 (5-15); BUN 22 mg/dL (7-18); BUN/Creat Ratio 17.3 RATIO (10-20); Calcium,Total 9.5 mg/dL (8.5-10.1); Chloride 108 mmol/L (98-107); Creatinine, Serum 1.27 mg/dL (0.70-1.30); EST Glomerular Filtration Rate 66 mL/min (>60); Est Glom Filt Rate - Afr Amer 80 mL/min (>60); Glucose 74 mg/dL (74-106); Potassium 3.8 mmol/L (3.5-5.1); Sodium Level 139 mmol/L (136-145)
== END | disposition home or self-care (01) ==
LOC: BFHLAB 16:27
PROVIDERS: PCP Family Medicine; Referring Provider Family Medicine; Visit Provider Family Medicine
DX: I10 Essential (primary) hypertension (principal)
CPT/HCPCS: 36415; 80048; 85025